=== PATIENT | male | born 1945 | race Caucasian/White ===

== ENCOUNTER 2018-01-15 11:21 | Emergency (ER) | payer MEDICARE ==
[~2018-01-15] VITALS: Ht 177.8 cm; Wt 63.5 kg
[~2018-01-15 11:21] MED LIST: ALBU90OI INH; AMOCLA875; ASPI81CH PO; ATOR10 PO; AZIT250 PO; DELTASONE20 MG PO; DULERA 100 MCG/13 GM INH; GUAI600T33 PO; GUAIFENESIN ER600 MG PO; LEVFLO500 PO; LEVO750 PO; LORA1 PO; OMEPRAZOLE MAGN20 MG PO; PANT40 PO; PRED20 PO; Prednisone20 MG PO; TIOT18 INH; Zithromax250 MG PO
[2018-01-15 12:09] LABS: BASOPHILS ABSOLUTE AUTO 0.11 K/mm3 (0.00-0.23); BASOPHILS PERCENT AUTO 2 % (0-2); EOSINOPHILS ABSOLUTE AUTO 0.35 K/mm3 (0.00-0.68); EOSINOPHILS PERCENT AUTO 5 % (0-6); Hematocrit 46.1 % (37.0-53.0); Hemoglobin 15.5 g/dL (13.5-17.5); IMMATURE GRAN ABSOLUTE AUTO 0.04 K/mm3 (0.00-0.10); IMMATURE GRAN PERCENT AUTO 1 % (0-1); LYMPHOCYTES ABSOLUTE AUTO 1.66 K/mm3 (0.84-5.20); LYMPHOCYTES PERCENT AUTO 23 % (21-46); MONOCYTES ABSOLUTE AUTO 0.76 K/mm3 (0.16-1.47); MONOCYTES PERCENT AUTO 10 % (4-13); Mean Corpuscular HGB 30.2 pg (26.0-34.0); Mean Corpuscular HGB Conc 33.6 g/dL (31.5-36.5); Mean Corpuscular Volume 90 fL (80-100); Mean Platelet Volume 8.5 fL (9.1-12.4); NEUTROPHILS ABSOLUTE AUTO 4.38 K/mm3 (1.96-9.15); NEUTROPHILS PERCENT AUTO 60 % (41-73); Platelet Count 322 K/mm3 (150-400); RDW Coefficient Variation 14.1 % (11.7-14.2); RDW Standard Deviation 46.5 fL (35.1-46.3); Red Blood Cell Count 5.14 M/mm3 (4.30-5.90)
[2018-01-15] MEDS ORDERED: ASPI81CH PO (12:19)
[2018-01-15 12:38] LABS: Alanine Aminotransfer (ALT/SGP 31 U/L (12-78); Albumin, Blood 3.5 g/dL (3.4-5.0); Albumin/Globulin Ratio 1.2 (0.8-1.8); Alk Phos 82 U/L (50-136); Anion Gap 7 mmol/L (6-16); Aspartate Aminotrans (AST/SGOT 19 U/L (12-37); Bilirubin, Total 0.6 mg/dL (0.1-1.0); Blood Urea Nitrogen 14 mg/dL (8-24); Bun/Creatinine Ratio 15.5 (12.0-20.0); CO2, Blood 25 mmol/L (21-32); Calcium, Blood 8.9 mg/dL (8.5-10.1); Chloride, Blood 101 mmol/L (98-108); Creatinine, Blood 0.91 mg/dL (0.60-1.20); Glomerular Filtration Rate >60 (60-); Glucose, Blood 101 mg/dL (70-99); Potassium, Blood 4.4 mmol/L (3.5-5.5); Sodium, Blood 133 mmol/L (136-145); Total Protein, Blood 6.5 g/dL (6.4-8.2)
[2018-01-15] MEDS ORDERED: ALBU90OI INH (14:10)
[2018-01-15] MEDS ORDERED: Prednisone20 MG PO (14:10)
== END 2018-01-15 14:25 | disposition home or self-care (01) ==
LOC: ER 11:21
PROVIDERS: Emergency Medicine
DX: J44.1 Chronic obstructive pulmonary disease with (acute) exacerbation (principal); Z87.891 Personal history of nicotine dependence; Z88.5 Allergy status to narcotic agent; Z79.52 Long term (current) use of systemic steroids; Z79.2 Long term (current) use of antibiotics
CPT/HCPCS: 36415; 71046; 80053; 83880; 85025; 93005; 93010; 94640; 94644; 96374; 99283; J2930

== ENCOUNTER 2022-07-11 08:22 | Emergency (ER) | payer MEDICARE ==
[~2022-07-11] VITALS: Ht 177.8 cm; Wt 68.0 kg
[~2022-07-11 08:22] MED LIST changes: +IPRAT-ALBUT 0.5-3 ML INH; +OMEP20ER PO; +SYMBICORT 160-4.6 GM INH
[2022-07-11] MEDS ORDERED: TRELEGY ELLIPT1 EACH INH (08:36)
[2022-07-11 08:43] LABS: Source, Urine Clean Catch
[2022-07-11 08:55] LABS: Appearance, Urine Clear (Clear); Bilirubin, Urine Neg (Neg); Blood, Urine Neg (Neg); Color, Urine Yellow (P-Yellow); Glucose Qualitative, Urine Neg (Neg); Ketones, Urine Neg (Neg); Leukocyte Esterase, Urine Neg (Neg); Nitrite, Urine Neg (Neg); Protein, Urine Neg (Neg); Specific Gravity, Urine 1.015 (1.003-1.022); Urobilinogen, Urine NORM (Normal)
[2022-07-11] MEDS ORDERED: ONDA4ODT MM (09:29)
[2022-07-11] MEDS ORDERED: Pyridium100 MG PO (09:29)
== END 2022-07-11 09:37 | disposition home or self-care (01) ==
LOC: ER 08:22
PROVIDERS: Student in an Organized Health Care Education/Training Program
DX: R30.0 Dysuria (principal); J44.9 Chronic obstructive pulmonary disease, unspecified; Z88.5 Allergy status to narcotic agent; Z79.899 Other long term (current) drug therapy; Z87.891 Personal history of nicotine dependence
CPT/HCPCS: 81003; 99283; A9270

== ENCOUNTER 2023-05-06 10:52 | Inpatient (IN) | payer MEDICARE ==
[~2023-05-06] VITALS: Ht 177.8 cm; Wt 61.2 kg
[~2023-05-06 10:52] MED LIST changes: +ONDA4ODT MM; +Pyridium100 MG PO; +TRELEGY ELLIPT1 EACH INH
[2023-05-06 11:35] LABS: BASOPHILS ABSOLUTE AUTO 0.05 K/mm3 (0.00-0.23); BASOPHILS PERCENT AUTO 1 % (0-2); EOSINOPHILS ABSOLUTE AUTO 0.01 K/mm3 (0.00-0.68); EOSINOPHILS PERCENT AUTO 0 % (0-6); Hematocrit 46.5 % (37.0-53.0); Hemoglobin 15.3 g/dL (13.5-17.5); IMMATURE GRAN ABSOLUTE AUTO 0.02 K/mm3 (0.00-0.10); IMMATURE GRAN PERCENT AUTO 0 % (0-1); LYMPHOCYTES ABSOLUTE AUTO 0.32 K/mm3 (0.84-5.20); LYMPHOCYTES PERCENT AUTO 4 % (21-46); MONOCYTES ABSOLUTE AUTO 0.13 K/mm3 (0.16-1.47); MONOCYTES PERCENT AUTO 2 % (4-13); Mean Corpuscular HGB 29.5 pg (26.0-34.0); Mean Corpuscular HGB Conc 32.9 g/dL (31.5-36.5); Mean Corpuscular Volume 90 fL (80-100); Mean Platelet Volume 8.7 fL (9.1-12.4); NEUTROPHILS ABSOLUTE AUTO 7.42 K/mm3 (1.96-9.15); NEUTROPHILS PERCENT AUTO 93 % (41-73); Platelet Count 330 K/mm3 (150-400); RDW Coefficient Variation 14.8 % (11.7-14.2); RDW Standard Deviation 49.1 fL (35.1-46.3); Red Blood Cell Count 5.18 M/mm3 (4.30-5.90); White Blood Cell Count 7.95 K/mm3 (4.00-11.30)
[2023-05-06 11:37] LABS: Base Excess Venous 1.1 mmol/L; Bicarbonate Venous 24.8 mmol/L (24.0-30.0); PCO2 Venous 45.8 mmHg (38-42); pH Blood Venous 7.37 (7.34-7.37)
[2023-05-06 11:57] LABS: Albumin, Blood 3.8 g/dL (3.4-5.0); Albumin/Globulin Ratio 1.2 (0.8-1.8); Bilirubin, Total 0.8 mg/dL (0.1-1.0); Calcium, Blood 9.1 mg/dL (8.5-10.1); Creatinine, Blood 0.66 mg/dL (0.60-1.20); Globulin, Blood 3.1 g/dL (2.2-4.0); Potassium, Blood 4.3 mmol/L (3.5-5.5); Total Protein, Blood 6.9 g/dL (6.4-8.2)
[2023-05-06] MEDS ORDERED: SYMBICORT 16010.2 GM (12:57)
[2023-05-06 16:58] VITALS: BP 121/83
--- NOTE | 2023-05-06 17:49 | NUR ---
ADMIT/SHIFT SUMMARY: PT IS A NEW ADMIT, ARRIVING TO UNIT APPROX 1645. PT IS A&Ox4, ABLE TO MAKE NEEDS KNOWN AND COOPERATIVE W/CARE. O2 SATS MAINTAINED >92% ON BIPAP 12/6 30%, TOLERATED NC AT 3L/MIN FOR AMBULATING TO RESTROOM. PT REPORTS IMPROVED SOB SINCE BEING PLACED ON BIPAP. SINUS TACH ON MONITOR W/RATE 110s, PT DENIES CP. PT V/U OF IGNITION RISK WHILE O2 BEING USED IN ROOM AND DENIES POSSESSION OF OR INTENT TO USE IGNITION SOURCES WHILE IN HOSPITAL. PT ORIENTED TO ROOM, AT THIS TIME PT IS RESTING QUIETLY IN ROOM WITH TV ON AND REMOTE W/IN REACH. WILL CONTINUE TO MONITOR AND TREAT ACCORDINGLY UNTIL CHANGE OF SHIFT.
[2023-05-06 22:29] VITALS: BP 131/65
[2023-05-06 23:28] VITALS: BP 128/69
[2023-05-07 04:07] LABS: BASOPHILS ABSOLUTE AUTO 0.02 K/mm3 (0.00-0.23); BASOPHILS PERCENT AUTO 0 % (0-2); EOSINOPHILS PERCENT AUTO 0 % (0-6); Hematocrit 46.4 % (37.0-53.0); Hemoglobin 15.1 g/dL (13.5-17.5); IMMATURE GRAN ABSOLUTE AUTO 0.03 K/mm3 (0.00-0.10); IMMATURE GRAN PERCENT AUTO 1 % (0-1); LYMPHOCYTES ABSOLUTE AUTO 0.39 K/mm3 (0.84-5.20); LYMPHOCYTES PERCENT AUTO 6 % (21-46); MONOCYTES ABSOLUTE AUTO 0.22 K/mm3 (0.16-1.47); MONOCYTES PERCENT AUTO 3 % (4-13); Mean Corpuscular HGB 29.3 pg (26.0-34.0); Mean Corpuscular HGB Conc 32.5 g/dL (31.5-36.5); Mean Corpuscular Volume 90 fL (80-100); Mean Platelet Volume 8.9 fL (9.1-12.4); NEUTROPHILS ABSOLUTE AUTO 5.86 K/mm3 (1.96-9.15); NEUTROPHILS PERCENT AUTO 90 % (41-73); Platelet Count 344 K/mm3 (150-400); RDW Coefficient Variation 14.8 % (11.7-14.2); RDW Standard Deviation 49.1 fL (35.1-46.3); Red Blood Cell Count 5.16 M/mm3 (4.30-5.90); White Blood Cell Count 6.52 K/mm3 (4.00-11.30)
[2023-05-07 04:32] LABS: Bun/Creatinine Ratio 17.1 (12.0-20.0); Calcium, Blood 9.5 mg/dL (8.5-10.1); Creatinine, Blood 0.7 mg/dL (0.60-1.20); Potassium, Blood 4.4 mmol/L (3.5-5.5)
--- NOTE | 2023-05-07 04:56 | NUR ---
NOC SHIFT SUMMARY: PT IS A/O, PLEASANT AND COOPERATIVE. EXPRESSES DESIRE TO NOT "LIVE LIKE THIS" AND ASKS QUESTIONS ABOUT HOSPICE. PT WOULD LIKE TO DISCUSS THIS WITH HIS SPOUSE. ENCOURAGED TO ALLOW THE MEDICATIONS TIME TO WORK TO SEE IF THAT HELPS HIM FEEL BETTER. PT VERBALIZED UNDERSTANDING. SR WITH PVC'S NOTED, BP WNL. ON 2L NC PT IS DECLINING TO PUT BIPAP BACK ON. ENCOURAGED BY RT, PT STILL DOES NOT WANT TO WEAR IT. HE AGREES TO WEAR O2 VIA NC ONLY AT THIS TIME. WILLING TO DO RESP TREATMENTS. PT ATE SMALL AMOUNT OF DINNER. C/O [facility] NOTIFIED AND TUMS ORDERED AND GIVEN. PT STATES THEY ONLY WORKED FOR A FEW MINUTES, HE REQUESTS SOMETHING ELSE TO HELP RELIEVE HIS HEARTBURN. CONTACTED DR. Cody AGAIN AND PRILOSEC IV WAS ORDERED. ADMINISTERED TO PT AND GIVEN BREAD AND COLD WATER PER HIS REQUEST. OOB TO BATHROOM TO VOID. SKIN UNCHAGED. PIV X1 LEFT AC, SL. RN TO CONTINUE TO MONITOR.
[2023-05-07 05:29] VITALS: BP 137/74
[2023-05-07 08:32] VITALS: BP 136/108
[2023-05-07 11:25] VITALS: BP 137/78
--- NOTE | 2023-05-07 11:40 | NUR ---
Called to meet with pt and to review hospice. Spoke with pulmonogist about his past visits. Pt made himself a DNR. Met with pt and review of palliative care versus hospice. They are adamant they want hospice. obtained order from physican. Review of pt needs with physician. Will keep him full care to try to get some improvement. Will add very low dose roxinol as in patient so we can see if he tolerates with no itching. He has some significant burden of ventilation and discomfort. Stopped the ativan. Will monitor closely.
[2023-05-07 16:31] VITALS: BP 134/112
--- NOTE | 2023-05-07 17:25 | NUR ---
SHIFT SUMMARY: PT HAS BEEN A&Ox4, ABLE TO MAKE NEEDS KNOWN AND COOPERATIVE W/CARE. O2 SATS >92% ON 2 L/MIN NC, PT CONTINUES TO BE SELECTIVE ABOUT WHEN HE WILL WEAR BIPAP WHICH IS IN SHORT PERIODS. SIN TACH CONTINUES ON MONITOR, RATE 100-120, PT DENIES CHEST PAIN BUT DOES REPORT "TIGHTNESS" R/TO WOB. PALLIATIVE CARE CONSULTATION COMPLETED TODAY W/PT AND SPOUSE, PT DECIDES TO PURSUE GOING HOME ON HOSPICE. AT THIS TIME, PLAN IS FOR PT TO BE ADMITTED TO [facility] ON 05/09/23 AND WILL STAY IN HOSPITAL UNTIL THEN D/TO AIR HUNGER/WOB. PT MEDICATED PER ORDERS FOR C/O CHEST TIGHTNESS, PT DENIES ITCHING OR OTHER ADVERSE EFFECTS AFTER MEDICATION ADMINISTRATION, AND REPORTS IMPROVED OVERALL FEELING OF CHEST TIGHTNESS/WOB. PT CONTINUES TO DENY INTENT TO USE OR POSSESSION OF IGNITABLE SOURCES. WILL CONTINUE TO MONITOR AND TREAT ACCORDINGLY.
[2023-05-07 21:24] VITALS: BP 153/85
[2023-05-08 01:10] VITALS: BP 129/73
[2023-05-08 03:36] VITALS: BP 145/90
--- NOTE | 2023-05-08 06:52 | NUR ---
NOC SHIFT SUMMARY AT BEGINNING OF SHIFT PT EXTREMELY ANXIOUS, AIR HUNGER NOT RELIEVED BY 5MG MORPHINE. NOTIFIED DR. Cody AND ORDER FOR 0.5 ATIVAN X1 GIVEN AND PT EXPERIENCED RELIEF AND SLEPT FOR SEVERAL HOURS. ORIENTED X4, VSS PER PT TREND. POSTURING/SOA WITH AMBULATION OR MOVEMENT. PLAN FOR DC WITH HOSPICE ON SATURDAY. WILL PASS ON TO DAY RN.
[2023-05-08 07:46] VITALS: BP 118/99
--- NOTE | 2023-05-08 08:57 | NUR ---
FIRE IGNITION RISK ASSESSMENT PT ASSESSED FOR SMOKING AND FIRE IGNITION RISK DEVICES, NONE REPORTED. PT REMINDED THAT [facility] IS A SMOKE FREE FACILITY AND THAT ANY VISITORS NEED TO LEAVE FIRE IGNITION RISKE DEVICES IN THEIR VEHICLE. PT AGREED.
[2023-05-08 11:24] VITALS: BP 105/76
--- NOTE | 2023-05-08 14:32 | NUR ---
TRANSFER UPDATE REPORT CALLED IN AND GIVEN TO [facility] SHAYAN RN AT [id number].
--- NOTE | 2023-05-08 16:46 | NUR ---
Attempted to visit with Pt. Pt resting in bed with his eyes closed. Pt does not wake to moderate level verbal stimuli. Pt appears comfortable with no S/S of distress at this time. Pt left undisturbed at this time. Spoke with Primary RN Alvaro and discussed case. New order for Roxanol 5-10mg every 4 hours as needed placed. Palliative Care will remain available
--- NOTE | 2023-05-08 18:09 | NUR ---
THE PATIENT WAS TRANSFERRED TO THE MED FLOOR FROM PCU #[id number]. THE PATIEENT IS GOING HOME TOMORROW ON HOSPICE CARE, THE PAITIENT IS A&O X4. THE PATIENT WAS EDUCATED ABOUT FIRE DANGER AND IGNITIONS SOURCES. THE PATIENT IS RESTING AT THIS TIME, WILL CONTINUE TO MONITOR.
[2023-05-08 19:41] VITALS: BP 156/94
[2023-05-09 03:46] VITALS: BP 123/80
--- NOTE | 2023-05-09 04:04 | NUR ---
SHIFT SUMMARY. PT HAS BEEN SLEEPING THROUGH MOST OF SHIFT AFTER 2100 MEDICATION ADMINISTRATION AND SHIFT ASSESSMENT. SOME COMPLAINTS OF PAIN, WELL MANAGED VIA CURRENT MEDICATION REGIMEN. VERY MILD ANXIETY THIS MORNING ALSO ALLEVIATD VIA EMAR. SATTING WELL ON 3 L 02 VIA NC. INDEPENDENT WITHIN ROOM. AOX4, PLEASANT, COOPERATIVE WITH CARE. CALLS APPROPRIATELY. BED LOCKED IN LOWEST POSITION. CALL LIGHT LEFT WITHIN REACH.
[2023-05-09 07:27] VITALS: BP 130/75
[2023-05-09] MEDS ORDERED: ALBU2.5V5 INH (10:40)
[2023-05-09] MEDS ORDERED: ACET325 PO (10:40)
[2023-05-09] MEDS ORDERED: ONDA4ODT MM (10:41)
[2023-05-09] MEDS ORDERED: LORA.5 PO (10:41)
[2023-05-09] MEDS ORDERED: BUDESONIDE0.5 MG/2 M INH (10:41)
--- NOTE | 2023-05-09 11:47 | NUR ---
PT DISCHARGED FROM THE UNIT. IV REMOVED. HARD SCRIPTS GIVEN TO . TO DRIVE HOME. PT LEFT UNIT VIA WC. WILL DISCHARGE WITH HOSPICE.
== END 2023-05-09 11:10 | disposition hospice, home (50) | DRG 189 ==
LOC: ER 10:52 → PCU 10:53 → MEDS 13:51 → PCU 13:52 → MEDS 05-08 15:51
PROVIDERS: Emergency Medicine; ADMIT Internal Medicine
PROC: 5A09357 Assistance with Respiratory Ventilation, Less than 24 Consecutive Hours, Continuous Positive Airway Pressure (ICD-10-PCS; principal; 2023-05-06)
DX: J96.21 Acute and chronic respiratory failure with hypoxia (principal); J44.1 Chronic obstructive pulmonary disease with (acute) exacerbation; Z51.5 Encounter for palliative care; Z66 Do not resuscitate; K21.9 Gastro-esophageal reflux disease without esophagitis; F41.9 Anxiety disorder, unspecified; I25.10 Atherosclerotic heart disease of native coronary artery without angina pectoris; Z95.5 Presence of coronary angioplasty implant and graft; Z79.899 Other long term (current) drug therapy; Z99.81 Dependence on supplemental oxygen; Z88.8 Allergy status to other drugs, medicaments and biological substances; Z87.891 Personal history of nicotine dependence
CPT/HCPCS: 36415; 71045; 80048; 80053; 82803; 83880; 84484; 85025; 93005; 93010; 94640; 94644; 94660; 94664; 94760; 94762; 96374; 99285-25; A9270; C9113; J1650; J2060; J2405; J2930